=== PATIENT | female | born 2000 | race African-American/Black ===

== ENCOUNTER → 2021-06-06 | Emergency (ER) | payer OTHER ==
[~2021-06-06] VITALS: Ht 162.6 cm; Wt 79.8 kg
[~2021-06-06] MED LIST: ACETAMINOPHEN650 M2 PO; PRENATABS RX T1 EACH PO
== END | disposition home or self-care (01) ==
LOC: EMR PED 20:20 → ER 20:20
DX: O26.891 Other specified pregnancy related conditions, first trimester (principal); Z3A.13 13 weeks gestation of pregnancy; Z37.0 Single live birth; R10.2 Pelvic and perineal pain

== ENCOUNTER 2021-07-31 07:49 | Outpatient (CLI) | payer OTHER | END 2021-07-31 09:04 | disposition home or self-care (01) | LOC: PRENATAL 07:49 | PROVIDERS: ATTEND Obstetrics & Gynecology Maternal & Fetal Medicine | DX: O35.0XX0 Maternal care for (suspected) central nervous system malformation in fetus, not applicable or unspecified (principal); O35.3XX0 Maternal care for (suspected) damage to fetus from viral disease in mother, not applicable or unspecified; O99.891 Other specified diseases and conditions complicating pregnancy; Z3A.21 21 weeks gestation of pregnancy ==

== ENCOUNTER 2021-10-16 07:57 | Outpatient (CLI) | payer OTHER | END 2021-10-16 08:54 | disposition home or self-care (01) | LOC: PRENATAL 07:57 | PROVIDERS: ATTEND Obstetrics & Gynecology Maternal & Fetal Medicine | DX: O26.849 Uterine size-date discrepancy, unspecified trimester (principal); O99.891 Other specified diseases and conditions complicating pregnancy; Z3A.32 32 weeks gestation of pregnancy ==

== ENCOUNTER 2021-10-22 13:30 | Inpatient (IN) | payer OTHER ==
[~2021-10-22] VITALS: Ht 162.6 cm; Wt 81.6 kg
== END 2021-10-27 16:27 | disposition home or self-care (01) | DRG 833 ==
LOC: OBS/DEL 13:30 → LDR 10-23 20:01 → OB/GYN 10-23 20:01
PROVIDERS: ADMIT Student in an Organized Health Care Education/Training Program; ATTEND Student in an Organized Health Care Education/Training Program
PROC: 4A1HXCZ Monitoring of Products of Conception, Cardiac Rate, External Approach (ICD-10-PCS; principal; 2021-10-23)
DX: O60.03 Preterm labor without delivery, third trimester (principal); Z3A.33 33 weeks gestation of pregnancy; Z20.822 Contact with and (suspected) exposure to COVID-19